=== PATIENT | female | born 1975 | race Hispanic/Latino ===

== ENCOUNTER 2017-08-03 17:26 | Emergency (ER) | payer BC, SELFPAY ==
[2017-08-03] MEDS ORDERED: MEPERIDINE HCL 25 MG/0.5 ML ONE (18:26)
[2017-08-03] MEDS ORDERED: PROMETHAZINE 25 MG/ML VIAL ONE (18:26)
[2017-08-03 19:51] LABS: Glucose Level 107 mg/dL (65-120)
[2017-08-03 19:52] LABS: BUN Blood Urea Nitrogen 5 mg/dL (6-20)
[2017-08-03 19:53] LABS: Absolute Lymphocytes (CBC) 1.4 K/uL (0.7-4.9); Absolute Monocytes 0.5 K/uL (0.1-1.3); Absolute Neutrophil 6.3 K/uL (1.8-8.0); Basophils % 0.2 % (0-1.3); Bicarbonate 30 mEq/L (21-31); Eosinophils % 0.7 % (0-4.4); Hematocrit 36.5 % (36.0-45.0); Lymphocytes % 17.1 % (15.3-44.8); MCH 31.1 pg (27.0-35.0); MCV 92.8 fL (80-100); MPV 9.8 fL (7.6-11.3); Monocytes % 6.4 % (3.3-12.3); RBC Red Blood Cell Count 3.93 M/uL (3.86-4.86); Sodium Level 133 mEq/L (135-145)
[2017-08-03] MEDS ORDERED: PIPER/TAZO/NS 3.375gm 3.375 GM/100 ML BAG ONE (20:45)
--- NOTE | 2017-08-03 20:48 | RAD REPORT ---
EXAM DESCRIPTION: CT - Soft Tissue Neck W/Contr - 08/03/2017 8:30 pm CLINICAL HISTORY: Neck pain with neck swelling COMPARISON: None. TECHNIQUE: Computed axial tomography of the neck was obtained. 50 cc Isovue 300 was administered in travenously. Coronal and sagittal reconstruction was performed. All CT scans are performed using dose optimization technique as appropriate and may include automated exposure control or mA/KV adjustment according to patient size. FINDINGS: A lucency is present within a right mandibular molar. Stranding is present within the oralia cent subcutaneous fat . A fluid-filled abscess is not seen. The pharynx, tongue base, larynx and subglottic trachea appear unremarkable The parotid, submandibular and thyroid glands appear unremarkable. The parapharyngeal fat is clear. No significant lymphadenopathy is seen Fluid within the visualized sinuses is not noted IMPRESSION: Left mandibular tooth abscess with surrounding cellulitis
--- NOTE | 2017-08-03 21:12 | ER ---
Nurse's Notes [facility] Name: Ju King Age: 42 yrs Sex: Female : 1975 Arrival Date: 08/03/2017 Time: 17:27 Bed 14 Private MD: Unknown, Unknown Diagnosis: Periapical abscess without sinus;Cellulitis of face Presentation: 08/03 17:39 Presenting complaint: Patient states: I have a tooth infection, I saw the dentist aj1 yesterday and he gave me antibiotics and pain medication, this morning it was still swollen and I went to sleep and when I woke up it feels like all the swelling is starting to move down into my neck. I called the dentist's office but they said he had already left for the day and I might need to come to the hospital for a stronger antibiotic. Transition of care: patient was not received from another setting of care. Onset of symptoms was July 31, 2017. Risk Assessment: Do you want to hurt yourself or someone else? Patient reports no desire to harm self or others. Initial Sepsis Screen: Does the patient meet any 2 criteria? No. Patient's initial sepsis screen is negative. Does the patient have a suspected source of infection? No. Patient's initial sepsis screen is negative. Care prior to arrival: None. 17:39 Method Of Arrival: Ambulatory aj1 17:39 Acuity: DESHAWN 3 aj1 Triage Assessment: 17:46 General: Appears uncomfortable, Behavior is calm, cooperative. Pain: Complains of pain aj1 in right ear, right latter day, right jaw and submental area Pain does not radiate. Pain currently is 5 out of 10 on a pain scale. Quality of pain is described as tender. EENT: Throat is reddened bilaterally. Respiratory: Airway is patent Respiratory effort is even, unlabored, Respiratory pattern is regular, symmetrical, Breath sounds are clear bilaterally. Musculoskeletal: Swelling present in right cheek, right jaw and submental area. 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 - Social history:: Smoking status: Patient uses tobacco products, smokes 1.5 packs per day. - Ebola Screening: : Patient denies travel to an Ebola-affected area in the 21 days before illness onset. Screenin:10 Abuse screen: Denies threats or abuse. Nutritional screening: No deficits noted. aa5 Tuberculosis screening: No symptoms or risk factors identified. Fall Risk None identified. Assessment: 18:10 General: Appears uncomfortable, Behavior is calm, cooperative. Pain: Complains of pain aa5 in right buccal mucosa and right cheek and right jaw Pain currently is 5 out of 10 on a pain scale. Quality of pain is described as sharp, throbbing, Is continuous, Aggravated by eating. Neuro: Level of Consciousness is awake, alert, obeys commands, Oriented to person, place, time, situation. Cardiovascular: Heart tones S1 S2 present Rhythm is regular. Respiratory: Airway is patent Respiratory effort is even, unlabored, Respiratory pattern is regular, symmetrical. GI: No signs and/or symptoms were reported involving the gastrointestinal system. Patient currently denies nausea, vomiting. : No signs and/or symptoms were reported regarding the genitourinary system. EENT: swelling noted to right cheek and right jaw. Swelling noted to right upper gums and right lower gums. Upper teeth absent, poor molars noted to lower gums. . Derm: Skin is pink, warm \T\ dry. Musculoskeletal: Range of motion: intact in all extremities. 18:50 Reassessment: Patient and/or family updated on plan of care and expected duration. Pain aa5 level reassessed. Patient is alert, oriented x 3, equal unlabored respirations, skin warm/dry/pink. 19:38 General: Appears in no apparent distress. Behavior is calm, cooperative. Pain: Denies ea pain. Neuro: Level of Consciousness is awake, alert, obeys commands, Oriented to person, place, time, situation. Cardiovascular: Heart tones S1 S2 present. Respiratory: Airway is patent Respiratory effort is even, unlabored, Respiratory pattern is regular, symmetrical, Breath sounds are clear bilaterally. GI: No signs and/or symptoms were reported involving the gastrointestinal system. : No signs and/or symptoms were reported regarding the genitourinary system. EENT: Reports she had teeth pulled and has had issues with her lower teeth before. Derm: swelling to right side of face. Musculoskeletal: Circulation, motion, and sensation intact. 20:00 Reassessment: Patient and/or family updated on plan of care and expected duration. Pain ea level reassessed. Patient is alert, oriented x 3, equal unlabored respirations, skin warm/dry/pink. Patient states symptoms have improved. 21:51 Reassessment: Patient and/or family updated on plan of care and expected duration. Pain ea level reassessed. Patient is alert, oriented x 3, equal unlabored respirations, skin warm/dry/pink. Discharge instructions given to patient, verbalized the understanding of instructions. Patient states symptoms have improved. Vital Signs: 17:46 BP 127 / 70; Pulse 99; Resp 18; Temp 98.7; Pulse Ox 98% on R/A; Weight 74.84 kg; Pain aj1 5/10; 19:00 BP 118 / 75; Pulse 87; Resp 16 S; Pulse Ox 100% on R/A; Pain 5/10; aa5 20:00 BP 108 / 67; Pulse 70; Resp 18; Pulse Ox 98% on R/A; ea 21:51 BP 110 / 72; Pulse 80; Resp 18; Temp 97.6(TE); Pulse Ox 98% on R/A; Pain 3/10; ea ED Course: 17:27 Patient arrived in ED. mr 17:27 Unknown, Unknown is Private Physician. mr 17:43 Triage completed. aj1 17:46 Arm band placed on Patient placed in waiting room, Patient notified of wait time. aj1 18:03 Raphael Green PA is PHCP. jr8 18:03 Angel Ryan MD is Attending Physician. jr8 18:08 Lesley Mei, BASSEM is Primary Nurse. aa5 18:10 Patient has correct armband on for positive identification. Bed in low position. Call aa5 light in reach. Side rails up X2. 18:50 Basic Metabolic Panel Sent. ag 18:50 CBC with Diff Sent. ag 18:50 Initial lab(s) drawn, by ut, sent to lab. Inserted saline lock: 20 gauge in right ag antecubital area, using aseptic technique. Blood collected. 19:00 No provider procedures requiring assistance completed. aa5 19:05 Report given to BASSEM Obrien. aa5 20:21 Patient moved to NE via wheelchair. nj 20:24 CT completed. Patient tolerated procedure well. Patient moved back from NE. nj 20:29 CT Soft Tissue Neck W/contr In Process Unspecified. EDMS 21:50 IV discontinued, intact, bleeding controlled, No redness/swelling at site. Pressure ea dressing applied. Administered Medications: 18:50 Drug: Demerol 25 mg Route: IVP; Site: right antecubital; aa5 18:55 Follow up: Response: No adverse reaction aa5 18:50 Drug: Phenergan 12.5 mg Route: IVP; Site: right antecubital; aa5 18:55 Follow up: Response: No adverse reaction aa5 20:52 Drug: Zosyn 3.375 grams Route: IVPB; Infused Over: 60 mins; Site: right antecubital; ea 21:50 Follow up: Response: No adverse reaction; IV Status: Completed infusion ea 21:45 Drug: Potassium Chloride 40 mEq Route: PO; ea 21:50 Follow up: Response: No adverse reaction ea Outcome: 21:11 Discharge ordered by . dustin 21:46 Discharged to home ambulatory, with family. ea 21:46 Condition: stable 21:46 Discharge instructions given to patient, Instructed on discharge instructions, follow up and referral plans. medication usage, Demonstrated understanding of instructions, follow-up care, medications, Prescriptions given X 1. 21:52 Patient left the ED. ea Signatures: Dispatcher [employer] EDCO Lucinda Marshall RN RN aj1 Carmela Kuo MeiLesley haywood RN RN aa5 Raphael Green PA PA jr8 Alecia Fournier Nathan nj Antunez, Elena, RN RN ea
--- NOTE | 2017-08-03 21:12 | EDPHYS ---
Physician Documentation [facility] Name: Ju King Age: 42 yrs Sex: Female : 1975 Arrival Date: 08/03/2017 Time: 17:27 Bed 14 Private MD: Unknown, Unknown ED Physician Angel Ryan HPI: 08/03 19:11 This 42 yrs old Female presents to ER via Ambulatory with complaints of Sore jr8 Throat, Facial Swelling. 19:11 Onset: The symptoms/episode began/occurred gradually, 2 day(s) ago. Severity of jr8 symptoms: At their worst the symptoms were moderate, in the emergency department the symptoms are unchanged. Modifying factors: The symptoms are alleviated by nothing, the symptoms are aggravated by nothing. Associated signs and symptoms: The patient has no apparent associated signs or symptoms. The patient has not experienced similar symptoms in the past. The patient has been recently seen by a physician:. Patient stated that she has had facial swelling for the past couple of days. Saw dentist yesterday and started her on clindamycin. Stated that the swelling was worse today and felt like her throat was getting tight . 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 - Social history:: Smoking status: Patient uses tobacco products, smokes 1.5 packs per day. - Ebola Screening: : Patient denies travel to an Ebola-affected area in the 21 days before illness onset. ROS: 19:11 Eyes: Negative for injury, pain, redness, and discharge, Cardiovascular: Negative for jr8 chest pain, palpitations, and edema, Respiratory: Negative for shortness of breath, cough, wheezing, and pleuritic chest pain, Abdomen/GI: Negative for abdominal pain, nausea, vomiting, diarrhea, and constipation, Back: Negative for injury and pain, MS/Extremity: Negative for injury and deformity, Skin: Negative for injury, rash, and discoloration, Neuro: Negative for headache, weakness, numbness, tingling, and seizure. 19:11 ENT: Positive for dental pain, Gum pain Negative for sore throat, difficulty swallowing, difficulty handling secretions, hoarseness. 19:11 Neck: Positive for swelling, tenderness, of the submental area. Exam: 19:11 Eyes: Pupils equal round and reactive to light, extra-ocular motions intact. Lids and jr8 lashes normal. Conjunctiva and sclera are non-icteric and not injected. Cornea within normal limits. Periorbital areas with no swelling, redness, or edema. Neck: Trachea midline, no thyromegaly or masses palpated, and no cervical lymphadenopathy. Supple, full range of motion without nuchal rigidity, or vertebral point tenderness. No Meningismus. Cardiovascular: Regular rate and rhythm with a normal S1 and S2. No gallops, murmurs, or rubs. Normal PMI, no JVD. No pulse deficits. Respiratory: Lungs have equal breath sounds bilaterally, clear to auscultation and percussion. No rales, rhonchi or wheezes noted. No increased work of breathing, no retractions or nasal flaring. Abdomen/GI: Soft, non-tender, with normal bowel sounds. No distension or tympany. No guarding or rebound. No evidence of tenderness throughout. Back: No spinal tenderness. No costovertebral tenderness. Full range of motion. Skin: Warm, dry with normal turgor. Normal color with no rashes, no lesions, and no evidence of cellulitis. MS/ Extremity: Pulses equal, no cyanosis. Neurovascular intact. Full, normal range of motion. Neuro: Awake and alert, GCS 15, oriented to person, place, time, and situation. Cranial nerves II-XII grossly intact. Motor strength 5/5 in all extremities. Sensory grossly intact. Cerebellar exam normal. Normal gait. 19:11 Head/face: Noted is swelling, that is moderate, of the right cheek, chin and right jaw, tenderness, that is moderate, of the chin and right jaw. 19:11 ENT: Dental exam: dental caries, that is moderate, diffusely, pain, that is moderate, specifically in the lower right first molar (#30). Vital Signs: 17:46 BP 127 / 70; Pulse 99; Resp 18; Temp 98.7; Pulse Ox 98% on R/A; Weight 74.84 kg; Pain aj1 5/10; 19:00 BP 118 / 75; Pulse 87; Resp 16 S; Pulse Ox 100% on R/A; Pain 5/10; aa5 20:00 BP 108 / 67; Pulse 70; Resp 18; Pulse Ox 98% on R/A; ea 21:51 BP 110 / 72; Pulse 80; Resp 18; Temp 97.6(TE); Pulse Ox 98% on R/A; Pain 3/10; ea MDM: 18:03 Patient medically screened. jr8 21:09 Data reviewed: vital signs, nurses notes, lab test result(s), radiologic studies, CT jr8 scan, and as a result, I will discharge patient. Data interpreted: Pulse oximetry: on room air is 98 %. Interpretation: normal. Counseling: I had a detailed discussion with the patient and/or guardian regarding: the historical points, exam findings, and any diagnostic results supporting the discharge/admit diagnosis, lab results, radiology results, the need for outpatient follow up, a dentist, to return to the emergency department if symptoms worsen or persist or if there are any questions or concerns that arise at home. ED course: Patient without fever, abnormal vital signs, or elevated WBC count. Patient can swallow and is feeling better. At this time I believe outpatient therapy is indicated. Strict instructions to come back if she worsens. Patient and good with this. Also instructed to continue clindamycin at home until finished and will add second antibiotic . 08/03 18:20 Order name: CBC with Diff; Complete Time: 20:05 [facility] 08/03 18:20 Order name: Basic Metabolic Panel; Complete Time: 20:05 [facility] 08/03 20:06 Order name: CT Soft Tissue Neck W/contr; Complete Time: 21:04 [facility] 08/03 20:28 Order name: Urine Dipstick--Ancillary (enter results) [facility] 08/03 20:28 Order name: Urine --Ancillary (enter results) [facility] 08/03 18:20 Order name: IV; Complete Time: 18:50 Administered Medications: 18:50 Drug: Demerol 25 mg Route: IVP; Site: right antecubital; aa5 18:55 Follow up: Response: No adverse reaction aa5 18:50 Drug: Phenergan 12.5 mg Route: IVP; Site: right antecubital; aa5 18:55 Follow up: Response: No adverse reaction aa5 20:52 Drug: Zosyn 3.375 grams Route: IVPB; Infused Over: 60 mins; Site: right antecubital; ea 21:50 Follow up: Response: No adverse reaction; IV Status: Completed infusion ea 21:45 Drug: Potassium Chloride 40 mEq Route: PO; ea 21:50 Follow up: Response: No adverse reaction ea Disposition: 08/03/17 21:11 Discharged to Home. Impression: Periapical abscess without sinus, Cellulitis of face. - Condition is Stable. - Discharge Instructions: Cellulitis, Dental Abscess. - Prescriptions for Bactrim DS 800- 160 mg Oral Tablet - take 1 tablet by ORAL route every 12 hours for 10 days; 20 tablet. - Medication Reconciliation Form, Thank You Letter, Antibiotic Education, Prescription Opioid Use form. - Follow up: Private Physician; When: 2 - 3 days; Reason: Recheck today's complaints, Continuance of care, Re-evaluation by your physician. - Problem is new. - Symptoms have improved. Addendum: 08/08/2017 12:26 Co-signature as Attending Physician, Angel Ryan MD. r n Signatures: Dispatcher [employer] EDLucinda Camargo RN RN aj1 Angel Ryan MD MD rn Calderon, Audri, RN RN aa5 Raphael Green PA PA jr8 Camille Butler RN RN ea Corrections: (The following items were deleted from the chart) 08/03 21:52 21:11 08/03/2017 21:11 Discharged to Home. Impression: Periapical abscess without ea sinus; Cellulitis of face. Condition is Stable. Forms are Medication Reconciliation Form, Thank You Letter, Antibiotic Education, Prescription Opioid Use. Follow up: Private Physician; When: 2 - 3 days; Reason: Recheck today's complaints, Continuance of care, Re-evaluation by your physician. Problem is new. Symptoms have improved. jr8
[2017-08-03] MEDS ORDERED: POTASSIUM CL SA 10 MEQ TAB PO ONE ×2 (21:33→21:41)
[2017-08-03 23:01] LABS: Urine Blood TRACE (NEG); Urine Glucose NEGATIVE (NEG); Urine Protein NEGATIVE (NEG)
== END 2017-08-03 21:52 | disposition home or self-care (01) ==
LOC: ER 17:26
DX: K04.7 Periapical abscess without sinus (principal); F17.210 Nicotine dependence, cigarettes, uncomplicated
CPT/HCPCS: 36415; 70491; 80048; 81003; 81025; 85025; 96365; 96375; 99284; J2175; J2543; J2550; Q9967

== ENCOUNTER 2021-06-28 06:35 | Emergency (ER) | payer BC, SELFPAY ==
--- OUTSIDE RECORDS SUMMARY | 2021-06-28 06:37 | XMS REPORT | Continuity of Care Document ---
:1975 Author Organization [facility] t Address [address] [place] [address] Care Team Providers Name Role Phone Unavailable Unavailable Unavailable Problems This patient has no known problems. Allergies, Adverse Reactions, Alerts This patient has no known allergies or adverse reactions. Medications This patient has no known medications. Procedures This patient has no known procedures. Results This patient has no known results.
[2021-06-28] MEDS ORDERED: NA CHLORIDE 0.9% 1,000 ML ONE (07:39)
[2021-06-28] MEDS ORDERED: ONDANSETRON 4 MG/2 ML VIAL ONE (07:39)
[2021-06-28] MEDS ORDERED: MORPHINE 4 MG/ML SYR ONE (07:39)
[2021-06-28 07:49] LABS: Absolute Lymphocytes (CBC) 1.6 K/uL (0.7-4.9); Hematocrit 39.1 % (36.0-45.0); Lymphocytes % 19.2 % (15.3-44.8); MPV 9.4 fL (7.6-11.3); RBC Red Blood Cell Count 4.24 M/uL (3.86-4.86)
[2021-06-28 07:52] LABS: Urine Blood Trace-intact (Negative); Urine Glucose Negative (Negative); Urine Protein Negative (Negative); Urine Specific Gravity 1.015 (1.005-1.030)
[2021-06-28 08:02] LABS: ALT/SGPT 16 U/L (12-78); AST/SGOT 12 U/L (15-37); Albumin 3.4 g/dL (3.4-5.0); Alkaline Phosphatase 88 U/L (45-117); BUN Blood Urea Nitrogen 9 mg/dL (7-18); Bicarbonate 25 mmol/L (21-32); Bilirubin Total 0.4 mg/dL (0.2-1.0); Glucose Level 91 mg/dL (74-106); Lipase 60 U/L (73-393); Potassium 3.4 mmol/L (3.5-5.1); Protein, Total 7.4 g/dL (6.4-8.2); Sodium Level 136 mmol/L (136-145)
--- NOTE | 2021-06-28 08:27 | RAD REPORT ---
EXAM DESCRIPTION: [facility] Protocol - 06/28/2021 8:05 am CLINICAL HISTORY: abd pain COMPARISON: [facility] Protocol dated 12/22/2015; LUMBAR SPINE 3 VIEWS dated 11/06/2013 TECHNIQUE: CT of the abdomen and pelvis was performed without contrast. All CT scans are performed using dose optimization technique as appropriate and may include automated exposure control or mA/KV adjustment according to patient size. FINDINGS: Lower chest: Mild nonspecific interlobular septal thickening in the lung bases. Liver: No acute abnormality or suspicious lesions. Biliary: Cholecystectomy. Extrahepatic biliary duct dilatation is likely related to the postcholecyst ectomy state. Stomach: Gastric bypass. Duodenum: No significant focal abnormality. Pancreas: No significant abnormality. Spleen: No significant abnormality. Adrenal: Unchanged bilateral adrenal lesions which are consistent with adenomas. Kidney/ureter: No hydronephrosis. No renal calculi. Retroperitoneum: Enlarged para-aortic lymph node at the aortic bifurcation which is slightly smaller compared with 12/22/2015 and almost certainly benign. Vascular: No aneurysm. Bowel: Normal appendix.. Peritoneum: No ascites or free air. Bladder: Grossly unremarkable. Reproductive: No adnexal masses. Bones: No acute fracture. 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 Other: n/a IMPRESSION: No acute intra-abdominal or pelvic finding. Specifically, no urinary tract calculi ident ified. Normal appendix.
[2021-06-28] MEDS ORDERED: POTASSIUM 25 MEQ EFFERV TAB ONE (09:00)
--- NOTE | 2021-06-28 09:05 | ER ---
Nurse's Notes [facility] Name: Ju King Age: 46 yrs Sex: Female : 1975 Arrival Date: 06/28/2021 Time: 06:36 Bed 14 Private MD: Diagnosis: Low back pain-flank pain;Hypokalemia Presentation: 06/28 07:06 Chief complaint: Patient states: she is having left flank pain x 5 days which is bb getting worse denies fever, dysuria, vomiting or diarrhea. Coronavirus screen: At this time, the client does not indicate any symptoms associated with coronavirus-19. Ebola Screen: No symptoms or risks identified at this time. Initial Sepsis Screen: Does the patient meet any 2 criteria? No. Patient's initial sepsis screen is negative. Does the patient have a suspected source of infection? No. Patient's initial sepsis screen is negative. Risk Assessment: Do you want to hurt yourself or someone else? Patient reports no desire to harm self or others. Onset of symptoms was June 23, 2021. 07:06 Method Of Arrival: Wheelchair bb 07:06 Acuity: DESHAWN 2 bb Triage Assessment: 07:08 General: Appears uncomfortable, ill, Behavior is agitated, anxious. Pain: Complains of bb pain in left flank Pain currently is 8 out of 10 on a pain scale. Neuro: Level of Consciousness is awake, alert, obeys commands, Oriented to person, place, time, situation. Cardiovascular: Capillary refill < 3 seconds Patient's skin is warm and dry. Respiratory: Respiratory effort is unlabored. GI: Abdomen is round Reports left flank pain. : Denies dysuria. Derm: Skin is pink, warm \T\ dry. Musculoskeletal: Circulation, motion, and sensation intact. BUSINESS SUPPORT LIAISON: 07:08 LMP 06/2021 bb Historical: - Allergies: 07:08 No Known Allergies; bb - Home Meds: 07:08 None [Active]; bb - PMHx: 07:08 None; bb - PSHx: 07:08 carpal tunnel; gastric bypass; bb - Immunization history:: Client reports receiving the 2nd dose of the Covid vaccine, Pfizer. - Social history:: Smoking status: Patient reports the use of cigarette tobacco products. Screenin:30 Abuse screen: Denies threats or abuse. Nutritional screening: No deficits noted. vg1 Tuberculosis screening: No symptoms or risk factors identified. Fall Risk No fall in past 12 months (0 pts). No secondary diagnosis (0 pts). IV access (20 points). Ambulatory Aid- None/Bed Rest/Nurse Assist (0 pts). Gait- Normal/Bed Rest/Wheelchair (0 pts) Mental Status- Oriented to own ability (0 pts). Total Aleman Fall Scale indicates No Risk (0-24 pts). Assessment: 07:20 General: Appears uncomfortable, Behavior is cooperative, crying. Pain: Complains of vg1 pain in Left Flank Pain currently is 8 out of 10 on a pain scale. Pain began x 8 days Noted to be crying, grimacing, guarding, moaning. Neuro: [place] Agitation-Sedation Scale (RASS): +1 Restless Level of Consciousness is awake, alert, obeys commands, Oriented to person, place, time, situation. Cardiovascular: Patient's skin is warm and dry. Respiratory: Airway is patent Respiratory effort is even, unlabored. GI: Abdomen is flat, Last BM was June 20, 2021. Reports nausea, Patient currently denies diarrhea, vomiting. : Denies burning with urination, urinary frequency. EENT: No signs and/or symptoms were reported regarding the EENT system. Derm: Skin is intact, is healthy with good turgor. Musculoskeletal: Circulation, motion, and sensation intact. 07:30 Reassessment: Received VO from Dr Almodovar to administer Morphine 4 mg IVP x1. vg1 08:46 Reassessment: Patient appears in no apparent distress at this time. Patient and/or vg1 family updated on plan of care and expected duration. Pain level reassessed. Patient is alert, oriented x 3, equal unlabored respirations, skin warm/dry/pink. Patient states feeling better. 09:31 Reassessment: Patient appears in no apparent distress at this time. Patient and/or vg1 family updated on plan of care and expected duration. Pain level reassessed. Patient is alert, oriented x 3, equal unlabored respirations, skin warm/dry/pink. Vital Signs: 07:06 BP 98 / 77; Pulse 79; Resp 20 S; Temp 97.8(TE); Pulse Ox 96% on R/A; Weight 71.21 kg bb (R); Height 5 ft. 3 in. (160.02 cm) (R); Pain 8/10; 07:30 BP 118 / 69; Pulse 82; Resp 18; Pulse Ox 98% on R/A; vg1 08:15 BP 101 / 85; Pulse 60; Resp 16; Pulse Ox 97% on R/A; vg1 07:06 Body Mass Index 27.81 (71.21 kg, 160.02 cm) ED Course: 06:36 Patient arrived in ED. kz 07:07 Triage completed. bb 07:08 Arm band placed on Patient placed in an exam room, on a stretcher, on pulse oximetry. bb Family accompanied patient. 07:12 Ras Almodovar MD is Attending Physician. mary 07:16 Ghada De Paz, RN is Primary Nurse. vg1 07:30 Patient has correct armband on for positive identification. Bed in low position. Call vg1 light in reach. Side rails up X 1. 07:30 Initial lab(s) drawn, by me, sent to lab. Inserted saline lock: 20 gauge in right vg1 antecubital area, using aseptic technique. Blood collected. 08:07 CT Stone Protocol In Process Unspecified. EDMS 09:31 No provider procedures requiring assistance completed. IV discontinued, intact, vg1 bleeding controlled, No redness/swelling at site. Pressure dressing applied. Administered Medications: 07:37 Drug: NS 0.9% 1000 ml Route: IV; Rate: 1 bolus; Site: right antecubital; vg1 09:32 Follow up: IV Status: Completed infusion; IV Intake: 1000ml vg1 07:37 Drug: Zofran (Ondansetron) 4 mg Route: IVP; Site: right antecubital; vg1 08:57 Follow up: Response: No adverse reaction; Marked relief of symptoms vg1 07:39 Drug: morphine 4 mg {Note: RASS 1.} Route: IVP; Site: right antecubital; vg1 08:57 Follow up: Response: No adverse reaction; Marked relief of symptoms vg1 09:00 Drug: Potassium Effervescent Tablet 25 mEq Route: PO; vg1 09:32 Follow up: Response: No adverse reaction vg1 Intake: 09:32 IV: 1000ml; Total: 1000ml. vg1 Outcome: 09:05 Discharge ordered by . mary 09:31 Discharged to home ambulatory, with family. vg1 09:31 Condition: good 09:31 Discharge instructions given to patient, Instructed on discharge instructions, follow up and referral plans. medication usage, Demonstrated understanding of instructions, follow-up care, medications, Prescriptions given X 3. 09:31 Patient left the ED. vg1 Signatures: Dispatcher [employer] Ras Tsai MD MD cha Ballard, Brenda, RN RN Ghada Murray RN RN vg1 Grace Costello
--- NOTE | 2021-06-28 09:05 | EDPHYS ---
Physician Documentation [facility] Name: Ju King Age: 46 yrs Sex: Female : 1975 Arrival Date: 06/28/2021 Time: 06:36 Bed 14 Private MD: RAYMOND Physician Ras Almodovar HPI: 06/28 08:14 This 46 yrs old Female presents to ER via Wheelchair with complaints of Flank mary Pain - Left. 08:14 The patient complains of pain in the left low back and left mid back. The pain radiates mary to the left low back and left mid back. Onset: The symptoms/episode began/occurred 6 day(s) ago. Modifying factors: The symptoms are alleviated by nothing. the symptoms are aggravated by nothing. Associated signs and symptoms: The patient has no apparent associated signs or symptoms. Severity of pain: At its worst the pain was. The patient has not experienced similar symptoms in the past. HEAD GRINDER: 07:08 LMP 06/2021 bb Historical: - Allergies: 07:08 No Known Allergies; bb - Home Meds: 07:08 None [Active]; bb - PMHx: 07:08 None; bb - PSHx: 07:08 carpal tunnel; gastric bypass; bb - Immunization history:: Client reports receiving the 2nd dose of the Covid vaccine, Pfizer. - Social history:: Smoking status: Patient reports the use of cigarette tobacco products. ROS: 08:15 Constitutional: Negative for fever, chills, and weight loss, Eyes: Negative for injury, mary pain, redness, and discharge, ENT: Negative for injury, pain, and discharge, Neck: Negative for injury, pain, and swelling, Cardiovascular: Negative for chest pain, palpitations, and edema, Respiratory: Negative for shortness of breath, cough, wheezing, and pleuritic chest pain, Abdomen/GI: Negative for abdominal pain, nausea, vomiting, diarrhea, and constipation, : Negative for injury, bleeding, discharge, and swelling, MS/Extremity: Negative for injury and deformity, Skin: Negative for injury, rash, and discoloration, Neuro: Negative for headache, weakness, numbness, tingling, and seizure, Psych: Negative for depression, anxiety, suicide ideation, homicidal ideation, and hallucinations, Allergy/Immunology: Negative for hives, rash, and allergies, Endocrine: Negative for neck swelling, polydipsia, polyuria, polyphagia, and marked weight changes, Hematologic/Lymphatic: Negative for swollen nodes, abnormal bleeding, and unusual bruising. 08:15 Back: Positive for pain at rest, flank pain, on the left. Exam: 08:15 Constitutional: This is a well developed, well nourished patient who is awake, alert, mary and in no acute distress. Head/Face: Normocephalic, atraumatic. Eyes: Pupils equal round and reactive to light, extra-ocular motions intact. Lids and lashes normal. Conjunctiva and sclera are non-icteric and not injected. Cornea within normal limits. Periorbital areas with no swelling, redness, or edema. ENT: Nares patent. No nasal discharge, no septal abnormalities noted. Tympanic membranes are normal and external auditory canals are clear. Oropharynx with no redness, swelling, or masses, exudates, or evidence of obstruction, uvula midline. Mucous membranes moist. Neck: Trachea midline, no thyromegaly or masses palpated, and no cervical lymphadenopathy. Supple, full range of motion without nuchal rigidity, or vertebral point tenderness. No Meningismus. Chest/axilla: Normal chest wall appearance and motion. Nontender with no deformity. No lesions are appreciated. Cardiovascular: Regular rate and rhythm with a normal S1 and S2. No gallops, murmurs, or rubs. Normal PMI, no JVD. No pulse deficits. Respiratory: Lungs have equal breath sounds bilaterally, clear to auscultation and percussion. No rales, rhonchi or wheezes noted. No increased work of breathing, no retractions or nasal flaring. Female : Normal external genitalia. Skin: Warm, dry with normal turgor. Normal color with no rashes, no lesions, and no evidence of cellulitis. MS/ Extremity: Pulses equal, no cyanosis. Neurovascular intact. Full, normal range of motion. Neuro: Awake and alert, GCS 15, oriented to person, place, time, and situation. Cranial nerves II-XII grossly intact. Motor strength 5/5 in all extremities. Sensory grossly intact. Cerebellar exam normal. Normal gait. Psych: Awake, alert, with orientation to person, place and time. Behavior, mood, and affect are within normal limits. 08:15 Respiratory: the patient does not display signs of respiratory distress, Respirations: normal, no acute changes, Breath sounds: are clear throughout. 08:15 Abdomen/GI: Inspection: abdomen appears normal, Bowel sounds: normal, active, Palpation: mild abdominal tenderness, in the posterior aspect of left lateral abdomen, anterior aspect of left lateral abdomen, left upper quadrant and left lower quadrant, Liver: no appreciated palpable abnormalities, Hernia: not appreciated. Vital Signs: 07:06 BP 98 / 77; Pulse 79; Resp 20 S; Temp 97.8(TE); Pulse Ox 96% on R/A; Weight 71.21 kg bb (R); Height 5 ft. 3 in. (160.02 cm) (R); Pain 8/10; 07:30 BP 118 / 69; Pulse 82; Resp 18; Pulse Ox 98% on R/A; vg1 08:15 BP 101 / 85; Pulse 60; Resp 16; Pulse Ox 97% on R/A; vg1 07:06 Body Mass Index 27.81 (71.21 kg, 160.02 cm) MDM: 07:12 Patient medically screened. [facility] 08:16 Differential diagnosis: nephrolithiasis, pyelonephritis, UTI, diverticulitis, mary pancreatitis, Basilar Pneumonia chronic back pain. Data reviewed: vital signs, nurses notes, lab test result(s), radiologic studies, CT scan, plain films. Data interpreted: youth nutritional monitor: rate is 82 beats/min, rhythm is regular, Pulse oximetry: on room air is 98 %. Test interpretation: by ED physician or midlevel provider:. Counseling: I had a detailed discussion with the patient and/or guardian regarding: the historical points, exam findings, and any diagnostic results supporting the discharge/admit diagnosis, lab results, radiology results. 06/28 07:14 Order name: CBC with Diff; Complete Time: 08:17 mary 06/28 07:14 Order name: CMP; Complete Time: 08:17 mary 06/28 07:14 Order name: Lipase; Complete Time: 08:17 mary 06/28 07:14 Order name: Urine Culture mary 06/28 07:52 Order name: Urine Dipstick-Ancillary; Complete Time: 08:17 EDMS 06/28 07:53 Order name: Urine --Ancillary (enter results) bd 06/28 07:14 Order name: IV Saline Lock; Complete Time: 07:32 mary 06/28 07:14 Order name: Labs collected and sent; Complete Time: 07:32 [facility] 06/28 07:14 Order name: Urine Dipstick-Ancillary (obtain specimen); Complete Time: 07:53 [facility] 06/28 07:14 Order name: CT Stone Protocol; Complete Time: 09:04 [facility] 06/28 07:14 Order name: Urine Test (obtain specimen); Complete Time: 07:53 [facility] Administered Medications: 07:37 Drug: NS 0.9% 1000 ml Route: IV; Rate: 1 bolus; Site: right antecubital; vg1 09:32 Follow up: IV Status: Completed infusion; IV Intake: 1000ml vg1 07:37 Drug: Zofran (Ondansetron) 4 mg Route: IVP; Site: right antecubital; vg1 08:57 Follow up: Response: No adverse reaction; Marked relief of symptoms vg1 07:39 Drug: morphine 4 mg {Note: RASS 1.} Route: IVP; Site: right antecubital; vg1 08:57 Follow up: Response: No adverse reaction; Marked relief of symptoms vg1 09:00 Drug: Potassium Effervescent Tablet 25 mEq Route: PO; vg1 09:32 Follow up: Response: No adverse reaction vg1 Disposition Summary: 06/28/21 09:05 Discharge Ordered Location: Home [facility] Problem: new [facility] Symptoms: have improved [facility] Condition: Stable [facility] Diagnosis - Low back pain - flank pain mary - Hypokalemia mary Followup: mary - With: Private Physician - When: 2 - 3 days - Reason: Recheck today's complaints, Continuance of care, Re-evaluation by your physician Discharge Instructions: - Discharge Summary Sheet mary - Acute Back Pain, Adult mary - Musculoskeletal Pain mary - Hypokalemia [facility] Forms: - Medication Reconciliation Form [facility] - Thank You Letter mary - Antibiotic Education mary - Prescription Opioid Use [facility] Prescriptions: - Ibuprofen 600 mg Oral Tablet - take 1 tablet by ORAL route every 6 hours As needed take with food; 30 tablet; [facility] Refills: 0, Product Selection Permitted - Cyclobenzaprine 5 mg Oral Tablet - take 1 tablet by ORAL route 3 times per day As needed; 15 tablet; Refills: 0, mary Product Selection Permitted - Tylenol-Codeine #3 300 mg-30 mg Oral - take 2 tablet by ORAL route every 6 hours; 20 tablet; Refills: 0, Product mary Selection Permitted Signatures: Dispatcher [employer] Ras Tsai MD MD cha Ballard, Brenda, RN RN Ghada Murray RN RN vg1
[2021-06-28 09:32] LABS: Urine Specific Gravity/Preg 1.015 (1.005-1.030)
[2021-06-28 09:43] VITALS: TEMP 97.8
[2021-06-28 09:52] VITALS: BP 101/85; O2SAT 97
== END 2021-06-28 09:31 | disposition home or self-care (01) ==
LOC: ER 06:35
DX: R10.9 Unspecified abdominal pain (principal); M54.50 Low back pain, unspecified; E87.6 Hypokalemia; Z72.0 Tobacco use
CPT/HCPCS: 87088; 85025; 87086; 36415; 81025; 81003; 83690; 80053; 76377; 74176; J7030; J2405; 96361; 96374; 96375; 99284

== ENCOUNTER → 2023-05-16 | Emergency (ER) | payer BC ==
[~2023-05-16] MED LIST: MORPHINE 4 MG/ML SYR ONE; NA CHLORIDE 0.9% 1,000 ML ONE; ONDANSETRON 4 MG/2 ML VIAL ONE
--- OUTSIDE RECORDS SUMMARY | 2023-05-16 15:27 | XMS REPORT | Continuity of Care Document ---
Author Name Unknown Address [address] [place] [address] [employer] Address [address] [place] [address] [address] [place] [address] Care Team Providers Care Director Of Dementia Operations Name Role Phone [email or web address] Attending Clinician Larry paulino [email or web address] Admitting Clinician Larry paulino Payers Payer Name Policy Type Policy Number Effective Date Expirati on Date Source [id number] 2023 00:00:00 Social History Smoking Status Start Date Stop Date Source Heavy Tobacco Smoker [facility] Medications Ordered Medication Name Filled Medication Name Start Date Stop Date Current Medication? Ordering Clinician Indication Dosage Frequency Signature (SIG) Comments Components Source bupropion HCl XL 150 mg 24 hr tablet, extended release bupropion HCl XL 150 mg 24 hr tablet, extended release 05-11 00:00: 00 No bupropion HCl XL 150 mg 24 hr tablet, extended release [facility] fenofibrate micronized 67 mg capsule fenofibrate micronized 67 mg capsule No fenofibrat e micronized 67 mg capsule [facility] FeroSul 325 mg (65 mg iron) tablet Take 1 tablet every day by oral route. FeroSul 325 mg (65 mg iron) tablet Take 1 tablet every day by oral route. No 1 Q1D FeroSul 325 mg (65 mg iron) tablet Take 1 tablet every day by oral route. [facility] hydroxyzine pamoate 50 mg capsule hydroxyzine pamoate 50 mg capsule No hydroxyzin e pamoate 50 mg capsule [facility] mupirocin 2 % topical ointment APPLY A SMALL AMOUNT INTRANASAL AND INTRAUMBILI LEN TWICE A DAY FOR 3 WEEKS mupirocin 2 % topical ointment APPLY A SMALL AMOUNT INTRANASAL AND INTRAUMBILI LEN TWICE A DAY FOR 3 WEEKS No mupirocin 2 % topical ointment APPLY A SMALL AMOUNT INTRANASAL AND INTRAUMBIL ICAL TWICE A DAY FOR [address] [facility] oxybutynin chloride 5 mg tablet oxybutynin chloride 5 mg tablet No oxybutynin chloride 5 mg tablet [facility] sertraline 100 mg tablet sertraline 100 mg tablet No sertraline [address] [facility] sulfamethox azole 800 mg-trimetho prim 160 mg tablet Take 1 tablet every 12 hours by oral route for 21 days. sulfamethox azole 800 mg-trimetho prim 160 mg tablet Take 1 tablet every 12 hours by oral route for 21 days. No 1 Q12H sulfametho xazole 800 mg-trimeth oprim 160 mg tablet Take 1 tablet every 12 hours by oral route for [address] [facility] temazepam 7.5 mg capsule temazepam 7.5 mg capsule No temazepam 7.[address] [facility] Vitamin D3 Vitamin D3 No Vitamin D3 [facility] baclofen 20 mg tablet baclofen 20 mg tablet No baclofen [address] [facility] cephalexin 500 mg capsule cephalexin 500 mg capsule No cephalexin [address] [facility] diphenhydra mine (bulk) diphenhydra mine (bulk) No diphenhydr amine (bulk) [facility] Vital Signs Vital Name Observation Time Observation Value Comments S ource BP Diastolic 2023-05-12 00:00:00 62 mm[Hg] [facility] Height 2023-05-12 00:00:00 62 [in_i] [facility] BMI (Body Mass Index) 2023-05-12 00:00:00 32.4 kg/m2 [facility] Body Weight 2023-05-12 00:00:00 177 [lb_av] [facility] BP Systolic 2023-05-12 00:00:00 101 mm[Hg] [facility] Procedures Procedure Date / Time Performed Performing Clinicia n Source Gastroplasty 1997-02-20 00:00:00 [facility] Carpal Tunnel Surgery 1995-02-20 00:00:00 [facility] Plan of Care Planned Activity Planned Date Details Comments Source Future Appointment 2023-06-09 14:00:00 Cher pisano, [address] [place] [address] [address]; [address], [place] [address] [facility] Encounters Start Date/Time End Date/Time Encounter Type Admission Type Attending [facility] Care Department Encounter ID Source 2023-05-12 00:00:00 2023-05-12 00:00:00 KANCHAN Ibarra: [address], [facility] [address], [place] [address] , Ph. [facility] - GC_GCBZW_Luisa [facility]* [id number] [facility] 2023-05-11 00:00:00 2023-05-11 00:00:00 Outpatient [facility] [id number] [facility]
[2023-05-16 16:46] LABS: Absolute Lymphocytes (CBC) 1.1 K/uL (0.7-4.9); Absolute Monocytes 0.8 K/uL (0.1-1.3); Absolute Neutrophil 2.3 K/uL (1.8-8.0); Basophils % 0.7 % (0-1.3); Hemoglobin 13.6 g/dL (12.0-15.0); Lymphocytes % 26.6 % (15.3-44.8); MCH 32.2 pg (27.0-35.0); MCV 94.7 fL (80-100); Monocytes % 18.1 % (3.3-12.3); Neutrophils % 54.6 % (41.7-73.7); Nucleated Red Blood Cells % 0.1 % (0-0); Platelets 244 thou/uL (152-406); RBC Red Blood Cell Count 4.22 M/uL (3.86-4.86); Red Cell Distribution Width 14.3 % (12.1-15.2)
[2023-05-16 16:48] LABS: Specific Gravity 1.009 (1.005-1.030)
[2023-05-16 16:50] LABS: Specific Gravity 1.009 (1.005-1.030); Sqamous Epithelial <5 /HPF (None Seen); Urine Bacteria <20 /HPF (<20); Urine Bilirubin NEGATIVE (Negative); Urine Blood Negative (Negative); Urine Clarity Extremely Turbid (Clear); Urine Color Colorless (Yellow); Urine Crystals Unidentified Few /HPF (None Seen); Urine Culture Reflex Order NOT NEEDED; Urine Glucose NEGATIVE (Negative); Urine Ketones NEGATIVE (Negative); Urine Microscopic Reflex YN ORDER UMIC; Urine Nitrite NEGATIVE (Negative); Urine Protein NEGATIVE (Negative); Urine RBC <5 /HPF (None Seen); Urine Urobilinogen Normal (Normal); Urine WBC <5 /HPF (<5); Urine Yeast (Budding) Trace /HPF (None Seen); Urine pH 6.5 (5.0-7.0)
[2023-05-16 17:03] LABS: Albumin 3.2 g/dL (3.4-5.0); Albumin/Globulin Ratio 0.7 (1.1-1.8); Anion Gap 11.6 mEq/L (5.0-15.0); Bilirubin Total 0.7 mg/dL (0.2-1.0); Globulin 4.6 g/dL (2.3-3.5); Potassium 3.6 mEq/L (3.5-5.1); Protein, Total 7.8 g/dL (6.4-8.2)
--- NOTE | 2023-05-16 17:42 | RAD REPORT ---
EXAM DESCRIPTION: CTAbdomen Pelvis W Contrast - 05/16/2023 5:28 pm CLINICAL HISTORY: Abdominal pain. ABD PAIN COMPARISON: No comparisons TECHNIQUE: Biphasic CT imaging of the abdomen and pelvis was performed with 100 ml non-ionic IV cont rast. All CT scans are performed using dose optimization technique as appropriate and may include automated exposure control or mA/KV adjustment according to patient size. FINDINGS: The lung bases are clear.Postsurgical changes about the stomach. Cholecystectomy clips. The liver, spleen, pancreas, adrenal glands and kidneys are within normal limits. No bowel obstruction, free air, free fluid or abscess. The appendix is normal. No evidence of signi ficant lymphadenopathy. No suspicious bony findings. IMPRESSION: No acute intra-abdominal or pelvic finding.
--- NOTE | 2023-05-16 18:08 | EDPHYS ---
Physician Documentation [facility] Name: Ju King Age: 48 yrs Sex: Female : 1975 Arrival Date: 05/16/2023 Time: 15:21 Bed 13 Private MD: ED Physician Jairon Cervantes HPI: 05/15 18:30 This 48 yrs old Female presents to ER via Wheelchair with complaints of kb Abdominal Pain, Diarrhea. 18:30 Patient is a 48-year-old female who presents for lower abdominal pain with diarrhea kb that started 3 days ago. States she was seen by her PCP and referred to the ER for imaging. Patient denies fever, nausea, vomiting.. Historical: - Allergies: 15:27 No Known Allergies; ll1 - PMHx: 15:28 Depressive disorder; Anxiety; ll1 - PSHx: 15:27 carpal tunnel; Gastric Bypass; ll1 - Immunization history:: Adult Immunizations up to date. - Social history:: Smoking status: Patient reports the use of cigarette tobacco products, smokes one-half pack cigarettes per day. ROS: 18:19 Constitutional: As per HPI kb Exam: 18:25 Constitutional: This is a well developed, well nourished patient who is awake, alert, kb and in no acute distress. Head/Face: Normocephalic, atraumatic. ENT: Moist Mucous membranes Cardiovascular: Regular rate Respiratory: Respirations even and unlabored. No increased work of breathing. Talking in full sentences Skin: Warm, dry with normal turgor. Normal color. MS/ Extremity: Pulses equal, no cyanosis. Neurovascular intact. Full, normal range of motion. Neuro: Awake and alert, GCS 15, oriented to person, place, time, and situation. Moves all extremities. Normal gait. 18:25 Abdomen/GI: Inspection: abdomen appears normal, Bowel sounds: normal, Palpation: soft, in all quadrants, mild abdominal tenderness, in the right lower quadrant and left lower quadrant, Vital Signs: 15:29 BP 108 / 73; Pulse 75; Resp 20; Temp 97.9; Pulse Ox 100% ; Weight 78.93 kg; Height 5 ll1 ft. 2 in. ; Pain 8/10; 16:43 BP 111 / 69; Pulse 72; Resp 16; Pulse Ox 100% on R/A; mb9 18:16 BP 116 / 72; Pulse 78; Resp 16; Pulse Ox 100% on R/A; mb9 15:29 Body Mass Index 31.83 (78.93 kg, 157.48 cm) ll1 15:29 Pain Scale: Adult ll1 MDM: 15:26 Patient medically screened. kb 18:29 Differential diagnosis: appendicitis, non-specific abd pain, Pyelonephritis, kb Ureterolithiasis, urinary tract infection. Data reviewed: vital signs, nurses notes. Historians other than the Patient: Spouse/Significant Other: . Counseling: I had a detailed discussion with the patient and/or guardian regarding the historical points, exam findings, and any diagnostic results supporting the discharge/admit diagnosis, lab results, radiology results, the need for outpatient follow up, a family practitioner, a blueprint maker, to return to the emergency department if symptoms worsen or persist or if there are any questions or concerns that arise at home. 05/15 15:30 Order name: CBC with Diff; Complete Time: 16:47 kb 05/15 15:30 Order name: CMP; Complete Time: 17:09 kb 05/15 15:30 Order name: Lipase; Complete Time: 17:09 kb 05/15 15:30 Order name: Test, Urine; Complete Time: 16:49 kb 05/15 15:30 Order name: Urinalysis w/ reflexes; Complete Time: 16:51 kb 05/15 15:30 Order name: CT Abd/Pelvis - IV Contrast Only; Complete Time: 17:55 kb 05/15 15:30 Order name: IV Saline Lock; Complete Time: 16:44 kb 05/15 15:30 Order name: Labs collected and sent; Complete Time: 16:44 kb Administered Medications: 16:40 Drug: Ondansetron IVP 4 mg IVP once; over 2 minutes Route: IVP; Site: right antecubital;mb9 17:13 Follow up: Response: No adverse reaction mb9 16:44 Drug: NS 0.9% IV 1000 ml IV at 1 bolus Per protocol; 1000 mL bolus Route: IV; Rate: 1 mb9 bolus; Site: right antecubital; 18:17 Follow up: Response: No adverse reaction; IV Status: Completed infusion mb9 16:44 Drug: morphine IVP or IV 4 mg IVP once over 4 mins Route: IVP; Infused Over: 4 mins; mb9 Site: right antecubital; 17:13 Follow up: Response: No adverse reaction mb9 Disposition Summary: 05/16/23 18:08 Discharge Ordered Notes: Location: Home kb Condition: Stable kb Diagnosis - Lower abdominal pain, unspecified kb Followup: kb - With: Emergency Department - When: As needed - Reason: Worsening of condition Followup: kb - With: Private Physician - When: 2 - 3 days - Reason: Recheck today's complaints, Continuance of care, Re-evaluation by your physician Discharge Instructions: - Discharge Summary Sheet kb - Abdominal Pain, Adult, [id number] kb Forms: - Medication Reconciliation Form kb - Thank You Letter kb - Antibiotic Education kb - Prescription Opioid Use kb - Patient Portal Instructions kb - Leadership Thank You Letter kb Prescriptions: - Zofran 4 mg Oral tablet - take 1 tablet ORAL route every 6 hours As needed; 12 tablet; Refills: 0, kb Product Selection Permitted - dicyclomine 20 mg Oral tablet - take 1 tablet ORAL route 4 times per day As needed; 20 tablet; Refills: 0, kb Product Selection Permitted Signatures: Dispatcher [employer] Khushi Carolina, DAM TENDER ASSISTANT-C DAM TENDER ASSISTANT-Donna Doyle RN RN ll1 Pamela Yusuf, RN RN mb9 Corrections: (The following items were deleted from the chart) 15:31 15:27 Social history: Smoking status: Patient denies any tobacco usage or history of. ll1 ll1
--- NOTE | 2023-05-16 18:08 | ER ---
Nurse's Notes [facility] Name: Ju King Age: 48 yrs Sex: Female : 1975 Arrival Date: 05/16/2023 Time: 15:21 Bed 13 Private MD: Diagnosis: Lower abdominal pain, unspecified Presentation: 05/15 15:27 Chief complaint: Patient states: Severe abdominal pain for 2 days with diarrhea. ll1 Coronavirus screen: Client denies travel out of the [place] in the last 14 days. At this time, the client does not indicate any symptoms associated with coronavirus-19. Ebola Screen: Patient denies travel to an Ebola-affected area in the 21 days before illness onset. 15:27 Method Of Arrival: Wheelchair ll1 15:29 Initial Sepsis Screen: Does the patient meet any 2 criteria? No. Patient's initial 1 sepsis screen is negative. Does the patient have a suspected source of infection? No. Patient's initial sepsis screen is negative. Risk Assessment: Do you want to hurt yourself or someone else? Patient reports no desire to harm self or others. Onset of symptoms was May 15, 2023. 15:29 Acuity: DESHAWN 3 ll1 Triage Assessment: 15:28 General: Appears uncomfortable, ill, Behavior is calm, cooperative, appropriate for 1 age. Pain: Complains of pain in abdomen Quality of pain is described as aching. Neuro: No deficits noted. Cardiovascular: No deficits noted. GI: Reports lower abdominal pain, upper abdominal pain. Historical: - Allergies: 15:27 No Known Allergies; ll1 - PMHx: 15:28 Depressive disorder; Anxiety; ll1 - PSHx: 15:27 carpal tunnel; Gastric Bypass; ll1 - Immunization history:: Adult Immunizations up to date. - Social history:: Smoking status: Patient reports the use of cigarette tobacco products, smokes one-half pack cigarettes per day. Screenin:42 [facility] ED Fall Risk Assessment (Adult) History of falling in the last 3 months, mb9 including since admission No falls in past 3 months (0 pts) Confusion or Disorientation No (0 pts) Intoxicated or Sedated No (0 pts) Impaired Gait No (0 pts) Mobility Assist Device Used No (0 pt) Altered Elimination No (0 pt) Score/Fall Risk Level 0 - 2 = Low Risk Oriented to surroundings, Maintained a safe environment, Educated pt \T\ family on fall prevention, incl call for assistance when getting out of bed. Abuse screen: Denies threats or abuse. Nutritional screening: No deficits noted. Tuberculosis screening: No symptoms or risk factors identified. Assessment: 16:42 General: Appears uncomfortable, Behavior is calm, cooperative. Pain: Complains of pain mb9 in abdomen Pain radiates to RLQ and LLQ. Pain: Pain currently is 8 out of 10 on a pain scale. Quality of pain is described as sharp, stabbing. Neuro: [place] Agitation-Sedation Scale (RASS): 0 - Alert and Calm Level of Consciousness is awake, alert, obeys commands, Oriented to person, place, time, situation, Appropriate for age. Cardiovascular: Patient's skin is warm and dry. Respiratory: Airway is patent Respiratory effort is even, unlabored, Respiratory pattern is regular, symmetrical. GI: Abdomen is round non-distended, Bowel sounds present X 4 quads. Abd is soft Abdomen is tender to palpation in right lower quadrant and left lower quadrant Reports nausea. : No signs and/or symptoms were reported regarding the genitourinary system. EENT: No signs and/or symptoms were reported regarding the EENT system. Derm: Skin is pink, warm \T\ dry. Musculoskeletal: Range of motion: intact in all extremities. 17:40 Reassessment: No changes from previously documented assessment. Patient and/or family mb9 updated on plan of care and expected duration. Pain level reassessed. Patient is alert, oriented x 3, equal unlabored respirations, skin warm/dry/pink. Vital Signs: 15:29 BP 108 / 73; Pulse 75; Resp 20; Temp 97.9; Pulse Ox 100% ; Weight 78.93 kg; Height 5 ll1 ft. 2 in. ; Pain 8/10; 16:43 BP 111 / 69; Pulse 72; Resp 16; Pulse Ox 100% on R/A; mb9 18:16 BP 116 / 72; Pulse 78; Resp 16; Pulse Ox 100% on R/A; mb9 15:29 Body Mass Index 31.83 (78.93 kg, 157.48 cm) ll1 15:29 Pain Scale: Adult ll1 ED Course: 15:26 Patient arrived in ED. ae5 15:26 Khushi Meadows FNP-C is [facility]. kb 15:26 Jairon Cervantes MD is Attending Physician. kb 15:27 Arm band placed on. ll1 15:31 Triage completed. ll1 16:20 Pamela Yusuf, RN is Primary Nurse. mb9 16:41 Initial lab(s) drawn, by me, sent to lab. Urine collected: clean catch specimen, clear. mb9 Inserted saline lock: 20 gauge in right antecubital area, using aseptic technique. 16:42 Placed in gown. Bed in low position. Call light in reach. Side rails up X 1. Provided mb9 Education on: press call light if needing anything. Client placed on continuous cardiac and pulse oximetry monitoring. NIBP monitoring applied. Door closed. Noise minimized. Warm blanket given. 16:42 No provider procedures requiring assistance completed. mb9 16:44 CMP Sent. mb9 16:44 Lipase Sent. mb9 16:44 Test, Urine Sent. mb9 16:44 Urinalysis w/ reflexes Sent. mb9 17:29 CT Abd/Pelvis - IV Contrast Only In Process Unspecified. EDMS 18:17 IV discontinued, intact, bleeding controlled, No redness/swelling at site. Pressure mb9 dressing applied. Administered Medications: 16:40 Drug: Ondansetron IVP 4 mg IVP once; over 2 minutes Route: IVP; Site: right antecubital;mb9 17:13 Follow up: Response: No adverse reaction mb9 16:44 Drug: NS 0.9% IV 1000 ml IV at 1 bolus Per protocol; 1000 mL bolus Route: IV; Rate: 1 mb9 bolus; Site: right antecubital; 18:17 Follow up: Response: No adverse reaction; IV Status: Completed infusion mb9 16:44 Drug: morphine IVP or IV 4 mg IVP once over 4 mins Route: IVP; Infused Over: 4 mins; mb9 Site: right antecubital; 17:13 Follow up: Response: No adverse reaction mb9 Medication: 16:42 VIS not applicable for this client. mb9 Outcome: 18:08 Discharge ordered by . kb 18:17 Discharged to home ambulatory, with family, mb9 18:17 Condition: stable 18:17 Discharge instructions given to patient, family, Instructed on discharge instructions, follow up and referral plans. Demonstrated understanding of instructions, follow-up care, medications, Prescriptions given X 2, 18:17 Patient left the ED. mb9 Signatures: Dispatcher [employer] EDKhushi Banegas, RAKEL VIZCARRA-Donna Doyle RN RN 1 Pamela Yusuf RN RN mb9 Yu Farris ae5 Corrections: (The following items were deleted from the chart) 15:27 Social history: Smoking status: Patient denies any tobacco usage or history of. [place] [id number] 15:27 Chief complaint: Patient states: Severe abdominal pain for 2 days 1 1 15: 15:29 Pulse 75bpm; Resp 20bpm; Pulse Ox 100%; Temp 97.9F; 78.93 kg; Height 5 ft. 2 in.; 1 BMI: 31.8; Pain 8/10, Adult; ll1
[2023-05-16 19:07] VITALS: BP 116/72; TEMP 97.9; O2SAT 100
== END ==
LOC: ER 15:21
DX: R10.32 Left lower quadrant pain (principal); R10.31 Right lower quadrant pain; R19.7 Diarrhea, unspecified; F17.210 Nicotine dependence, cigarettes, uncomplicated
CPT/HCPCS: 85025; 81001; 36415; 81025; 83690; 80053; 74177; Q9967; J2405; J7030

== ENCOUNTER 2024-11-17 09:58 | Emergency (ER) | payer BC ==
--- OUTSIDE RECORDS SUMMARY | 2024-11-17 10:01 | XMS REPORT | Continuity of Care Document ---
Author Name Unknown Address [address] [place] [id number] Organization [facility] [place] Address [address] [facility] [address] [place] [address] Care Team Providers Care Manager Star Name Role Phone [email or web address] Attending Clinician Larry paulino [email or web address] Admitting Clinician Larry paulino Payers Payer Name Policy Type Policy Number Effective Date Expirati on Date Source [place] [id number] 2023 00:00:00 Social History Smoking Status Start [...] 24 hr tablet, extended release [facility] mupirocin 2 % topical ointment APPLY A SMALL AMOUNT INTRANASAL AND INTRAUMBILI LEN TWICE A DAY FOR 3 WEEKS mupirocin 2 % topical ointment APPLY A SMALL AMOUNT INTRANASAL AND INTRAUMBILI LEN TWICE A DAY FOR 3 WEEKS No mupirocin 2 % topical ointment APPLY A SMALL AMOUNT INTRANASAL AND INTRAUMBIL ICAL TWICE A DAY FOR 3 WEEKS [facility] oxybutynin chloride 5 mg tablet oxybutynin chloride 5 mg tablet No oxybutynin chloride 5 mg tablet [facility] sertraline 100 mg tablet sertraline 100 mg tablet No sertraline 100 mg tablet [facility] sulfamethox azole 800 mg-trimetho prim 160 [...] hours by oral route for 21 days. [facility] temazepam 7.5 mg capsule temazepam 7.5 mg capsule No temazepam 7.5 mg capsule [facility] Vitamin D3 Vitamin D3 No Vitamin D3 [facility] baclofen 20 mg tablet baclofen 20 mg tablet No baclofen 20 mg tablet [facility] cephalexin 500 mg capsule cephalexin 500 mg capsule No cephalexin 500 mg capsule [facility] diphenhydra mine (bulk) diphenhydra mine (bulk) No diphenhydr amine (bulk) [facility] fenofibrate micronized 67 mg capsule [...] e pamoate 50 mg capsule [facility] Vital Signs Vital Name Observation Time Observation Value Comments S ource BP Diastolic 2023-05-12 00:00:00 62 mm[Hg] [facility] Height 2023-05-12 00:00:00 62 [in_i] [facility] BMI (Body Mass Index) 2023-05-12 00:00:00 32.4 kg/m2 [facility] Body Weight 2023-05-12 00:00:00 177 [lb_av] [facility] BP Systolic 2023-05-12 00:00:00 101 mm[Hg] [facility] Procedures Procedure Date / Time Performed Performing Clinicia n Source Gastroplasty 1997-02-20 00:00:00 [facility] Carpal Tunnel Surgery 1995-02-20 00:00:00 [facility] Encounters Start Date/Time End Date/Time Encounter Type Admission Type Attending Clinicians Care Facility Care Department Encounter ID Source 2023-05-12 00:00:00 2023-05-12 00:00:00 KANCHAN Ibarra: [address], [address], [place] [address] , Ph. GC_GCBZW_Genaro miller_Marva [facility] - GC_GCBZW_Luisa dumont Bronson* [id number] [facility]
[2024-11-17] MEDS ORDERED: ZIPRASIDONE MESYLA 20 MG/VIAL IM ONE (10:33)
[2024-11-17] MEDS ORDERED: WATER FOR INJ,STERILE 10 ML ONE (10:34)
[2024-11-17 10:41] LABS: Absolute Lymphocytes (CBC) 1.0 K/uL (0.7-4.9); Hematocrit 46.2 % (36.0-45.0); Hemoglobin 15.3 g/dL (12.0-15.0); MCH 32.5 pg (27.0-35.0); MCHC 33.1 g/dL (32.0-36.0); MCV 98.3 fL (80-100); MPV 9.5 fL (7.6-11.3); Nucleated RBC Absolute Count 0.0 (0-0); Nucleated Red Blood Cells % 0.0 % (0-0); RBC Red Blood Cell Count 4.70 M/uL (3.86-4.86); White Blood Count 12.60 thou/uL (4.3-10.9)
[2024-11-17 10:52] LABS: PT Prothrombin Time 12.5 SECONDS (10-13.0); PTT, Activated Partial Thromb 33.9 SECONDS (27.2-37.4); Protime INR 1.11
[2024-11-17 11:02] LABS: ALT/SGPT 15 U/L (13-56); AST/SGOT < 10 U/L (15-37); Albumin 3.8 g/dL (3.4-5.0); Albumin/Globulin Ratio 1.0 (1.1-1.8); Alkaline Phosphatase 102 U/L (45-117); Anion Gap 16.3 mEq/L (5.0-15.0); BUN Blood Urea Nitrogen 10 mg/dL (7-18); Bilirubin Indirect, Calculated 0.3 mg/dL (0.2-0.8); Globulin 3.7 g/dL (2.3-3.5); Glucose Level 133 mg/dL (74-106)
[2024-11-17 11:04] LABS: Potassium 2.3 mEq/L (3.5-5.1)
[2024-11-17 11:07] LABS: METHAMPHETAM NEGATIVE (NEGATIVE); THC Cannibis POSITIVE (NEGATIVE)
[2024-11-17 11:21] LABS: Anisocytosis 1+; Blood Morphology Comment NOTED (NOT SEEN); White Blood Cell Scan OK (OK)
[2024-11-17 11:22] LABS: Poikilocytosis 1+; Stomatocytes 1+
[2024-11-17] MEDS ORDERED: POTASSIUM 25 MEQ EFFERV TAB ONE (11:28)
--- NOTE | 2024-11-17 11:48 | ER ---
Nurse's Notes [facility] Name: Ju King Age: 49 yrs Sex: Female : 1975 Arrival Date: 11/17/2024 Time: 09:58 Bed 8 Private MD: Diagnosis: Acute psychosis Presentation: 11/17 10:06 Chief complaint: Patient states: I am hearing voices and having hallucinations. I was jb4 in [place] [facility] since Monday. I thought I had done things I didn't . I started having chest pain 2 hours ago. Coronavirus screen: At this time, the client does not indicate any symptoms associated with coronavirus-19. Ebola Screen: No symptoms or risks identified at this time. Initial Sepsis Screen: Does the patient meet any 2 criteria? HR > 90 bpm. Yes. Initial Sepsis Screen: Does the patient have a suspected source of infection? No. Patient's initial sepsis screen is negative. Risk Assessment: Do you want to hurt yourself or someone else? Patient reports no desire to harm self or others. Onset of symptoms was November 10, 2024. Transition of care: patient was not received from another setting of care. 10:06 Method Of Arrival: Ambulatory jb4 10:06 Acuity: DESHAWN 2 jb4 SLATE TRIMMER: 10:56 LMP N/A - Post-menopause, Not nh2 Historical: - Allergies: 10:09 No Known Allergies; jb4 - PMHx: 10:09 Anxiety; depressive disorder; jb4 - PSHx: 10:09 carpal tunnel; Gastric Bypass; jb4 - Immunization history:: Adult Immunizations up to date. - Infectious Disease History:: Denies. - Social history:: Smoking status: Patient reports the use of cigarette tobacco products, smokes one pack cigarettes per day. Patient uses street drugs, marijuana. Screenin:20 [facility] ED Fall Risk Assessment (Adult) History of falling in the last 3 months, nh2 including since admission Yes- single mechanical fall (1 pt) Confusion or Disorientation Yes (5 pts) Intoxicated or Sedated No (0 pts) Impaired Gait No (0 pts) Mobility Assist Device Used No (0 pt) Altered Elimination No (0 pt) Score/Fall Risk Level 3 or more points = High Risk Oriented to surroundings, Maintained a safe environment, Educated pt \\T\\ family on fall prevention, incl call for assistance when getting out of bed, Assessed \\T\\ reinforced patient's understanding of fall precautions, Hourly rounding (assess needs \\T\\ fall precautionary measures) done. Abuse screen: Denies threats or abuse. Denies injuries from another. Nutritional screening: No deficits noted. Tuberculosis screening: No symptoms or risk factors identified. Assessment: 10:20 General: Appears distressed, uncomfortable, Behavior is anxious, crying, restless, nh2 Reports hearing voices and having hallucinations. Pain: Complains of pain in lumbar area, left low back and right low back Pain does not radiate. Pain currently is 6 out of 10 on a pain scale. Quality of pain is described as aching, Pain began 1 month ago Is intermittent, Noted to be crying, moaning, restless. Neuro: Level of Consciousness is awake, alert, obeys commands, Oriented to person, place, time, situation. Cardiovascular: Reports chest pain, Patient's skin is warm and dry. Rhythm is sinus rhythm. Respiratory: Reports shortness of breath on exertion Airway is patent Trachea midline Respiratory effort is even, unlabored, Respiratory pattern is symmetrical, tachypnea. GI: Abdomen is round non-distended, Reports diarrhea, Patient currently denies nausea, vomiting. : No signs and/or symptoms were reported regarding the genitourinary system. EENT: No signs and/or symptoms were reported regarding the EENT system. Derm: Skin is pink, warm \\T\\ dry. Musculoskeletal: Range of motion: intact in all extremities. 11:00 Reassessment: Patient and/or family updated on plan of care and expected duration. Pain nh2 level reassessed. Patient is alert, oriented x 3, equal unlabored respirations, skin warm/dry/pink. Patient states feeling better. 11:46 Reassessment: Patient and/or family updated on plan of care and expected duration. Pain nh2 level reassessed. Patient is alert, oriented x 3, equal unlabored respirations, skin warm/dry/pink. Patient states feeling better. Psych: 10:40 [place] Suicide Severity Screening: In the past month, have you wished you were nh2 or wished you could go to sleep and not wake up? Patient responds "No." "In the past month, have you actually had any thoughts of killing yourself?" Patient responds "no." "In your lifetime, have you ever done anything, started to do anything, or prepared to do anything to end your life?" Patient responds "yes." Patient reports suicidal intent occurred greater than 3 months prior. 10:40 Subjective: Patient's mood is sad, irritable, Delusions are denied, Hallucinations are nh2 auditory, visual. Objective: Patient is cooperative, Speech is rambling, Affect is flat. Interventions: Patient placed in hospital gown. Urine collected and sent for urine drug test. Safety Checks: Visitors are present. synthetic marijuana. Vital Signs: 10:06 BP 157 / 98; Pulse 124; Resp 20; Temp 97(TE); Pulse Ox 97% on R/A; Weight 66.22 kg (R); jb4 Height 5 ft. 2 in. (R); 11:06 BP 133 / 76; Pulse 102; Resp 20; Pulse Ox 95% on R/A; nh2 11:41 BP 128 / 71; Pulse 90; Resp 18; Pulse Ox 97% on R/A; nh2 10:06 Body Mass Index 26.70 (66.22 kg, 157.48 cm) jb4 ED Course: 10:01 Patient arrived in ED. al6 10:05 Jairon Cervantes MD is Attending Physician. sp3 10:09 Triage completed. jb4 10:09 Arm band placed on right wrist. jb4 10:11 Natanael Jensen, BASSEM is Primary Nurse. bp 10:20 Patient has correct armband on for positive identification. Placed in gown. Bed in low nh2 position. Call light in reach. Side rails up X2. Provided Education on: using call light for assistance. 10:20 Initial lab(s) drawn, by me, sent to lab. Inserted saline lock: 20 gauge in right nh2 antecubital area, using aseptic technique. Blood collected. Flushed with 10 mL NS. 11:04 Notified ED physician of a critical lab result(s). Potassium 2.3. ll1 12:00 No provider procedures requiring assistance completed. IV discontinued, intact, nh2 bleeding controlled, No redness/swelling at site. Pressure dressing applied. Administered Medications: 10:35 Drug: Geodon IM 20 mg IM once Route: IM; Site: right gluteus; nh2 11:00 Follow up: Response: No adverse reaction; Pain is decreased; Anxiety decreased nh2 11:37 Drug: Potassium PO Effervescent Tablet 50 mEq PO once; dissolve in 4 ounces of water or nh2 juice Route: PO; 12:01 Follow up: Response: No adverse reaction nh2 Medication: 10:20 VIS not applicable for this client. nh2 Outcome: 11:47 Discharge ordered by . sp3 12:00 Discharged to home ambulatory, with family, nh2 12:00 Condition: stable 12:00 Discharge instructions given to patient, family, Instructed on discharge instructions, follow up and referral plans. benefits of quitting smoking, Demonstrated understanding of instructions, follow-up care, 12:01 Patient left the ED. nh2 Signatures: Hunter Garcia RN RN jb4 Natanael Jensen RN RN bp Donna Warren RN RN ll1 Jairon Cervantes MD MD sp3 Bobby De La Cruz Jr, RN RN nh2 Lorena Wade6 Corrections: (The following items were deleted from the chart) 10:10 10:06 Chief complaint: Patient states: I am hearing voices and having hallucinations. I jb4 was in [place] since Monday. I thought I had done things I didn't . jb4 11:10 10:40 synthetic marijuana nh2 nh2 11:17 10:20 GI: Abdomen is round non-distended, Patient currently denies nausea, vomiting, nh2nh2
--- NOTE | 2024-11-17 11:48 | EDPHYS ---
Physician Documentation [facility] Name: Ju King Age: 49 yrs Sex: Female : 1975 Arrival Date: 11/17/2024 Time: 09:58 Bed 8 Private MD: ED Physician Jairon Cervantes HPI: 11/17 10:19 This 49 yrs old Female presents to ER via Ambulatory with complaints of AMS. sp3 10:19 49-year-old female with history of anxiety, depression and recent psychosis currently sp3 on ziprasidone presents to the ED for a 4-day history of psychosis including hearing voices and seeing "lead pencils coming down from the [place]". Patient states that she has been extremely anxious the entire time. She denies any suicidal ideation or homicidal ideation. No recent medication changes by her psychiatrist. She denies any headache, neck pain, chest pain, shortness of breath, abdominal pain, vomiting, diarrhea or or any other somatic symptoms. She denies . ROS, history and physical limited secondary to psychosis. Limited ROS documented.. 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 - Infectious Disease History:: Denies. - Social history:: Smoking status: Patient reports the use of cigarette tobacco products, smokes one pack cigarettes per day. Patient uses street drugs, marijuana. ROS: 10:20 Constitutional: Negative for fever, chills, and weight loss, Eyes: Negative for injury, sp3 pain, redness, and discharge, Neck: Negative for injury, pain, and swelling, Abdomen/GI: Negative for abdominal pain, nausea, vomiting, diarrhea, and constipation, Back: Negative for injury and pain, MS/Extremity: Negative for injury and deformity, Skin: Negative for injury, rash, and discoloration, Endocrine: Negative for neck swelling, polydipsia, polyuria, polyphagia, and marked weight changes, Hematologic/Lymphatic: Negative for swollen nodes, abnormal bleeding, and unusual bruising, 10:20 All other systems are negative, Exam: 10:21 Head/Face: Normocephalic, atraumatic. Eyes: Pupils equal round and reactive to light, sp3 extra-ocular motions intact. Lids and lashes normal. Conjunctiva and sclera are non-icteric and not injected. Cornea within normal limits. Periorbital areas with no swelling, redness, or edema. Neck: Trachea midline, no thyromegaly or masses palpated, and no cervical lymphadenopathy. Supple, full range of motion without nuchal rigidity, or vertebral point tenderness. No Meningismus. Chest/axilla: Normal chest wall appearance and motion. Nontender with no deformity. No lesions are appreciated. Respiratory: Lungs have equal breath sounds bilaterally, clear to auscultation and percussion. No rales, rhonchi or wheezes noted. No increased work of breathing, no retractions or nasal flaring. Abdomen/GI: Soft, non-tender, with normal bowel sounds. No distension or tympany. No guarding or rebound. No evidence of tenderness throughout. Back: No spinal tenderness. No costovertebral tenderness. Full range of motion. Skin: Warm, dry with normal turgor. Normal color with no rashes, no lesions, and no evidence of cellulitis. MS/ Extremity: Pulses equal, no cyanosis. Neurovascular intact. Full, normal range of motion. Neuro: Awake and alert, GCS 15, oriented to person, place, time, and situation. Cranial nerves II-XII grossly intact. Motor strength 5/5 in all extremities. Sensory grossly intact. Cerebellar exam normal. Normal gait. 10:21 Cardiovascular: Rate: tachycardic, 10:21 Psych: Patient extremely anxious with fists clenched looking up at the ceiling describing her psychosis. She denies suicidal ideation or homicidal ideation. No focal neurological deficit noted on limited exam.. 10:30 ECG was reviewed by the Attending Physician. EKG demonstrates normal sinus rhythm 98 sp3 bpm with normal intervals, normal QRS, normal axis, normal axis ST segments without evidence of acute ischemia. Vital Signs: 10:06 BP 157 / 98; Pulse 124; Resp 20; Temp 97(TE); Pulse Ox 97% on R/A; Weight 66.22 kg (R); jb4 Height 5 ft. 2 in. (R); 11:06 BP 133 / 76; Pulse 102; Resp 20; Pulse Ox 95% on R/A; nh2 11:41 BP 128 / 71; Pulse 90; Resp 18; Pulse Ox 97% on R/A; nh2 10:06 Body Mass Index 26.70 (66.22 kg, 157.48 cm) jb4 MDM: 10:05 Medical Screening Exam initiated sp3 10:21 Data reviewed: vital signs, nurses notes, lab test result(s), EKG, radiologic studies. sp3 ED course: 49-year-old female with PMH above now with anxiety and psychosis. Differential diagnosis includes manic episode with psychosis versus schizophrenia based acute psychosis. Standard toxicology workup pending and patient will receive Geodon 20 mg IM with further medication as indicated. Disposition pending workup and patient course.. 11:46 ED course: Patient now with heart rate in the 90s and full resolution of symptoms. She sp3 states she now wants to go home. We offered transfer and acceptance for acute psychosis at psychiatric facility however patient declines. She is no longer psychotic and has not and is not suicidal or homicidal. She will follow-up with her outpatient physician at this time.. 11/17 10:19 Order name: Acetaminophen; Complete Time: sp3 11/17 10:19 Order name: Basic Metabolic Panel; Complete Time: sp3 11/17 10:19 Order name: CBC with Diff; Complete Time: sp3 11/17 10:19 Order name: ETOH Level; Complete Time: sp3 11/17 10:19 Order name: Hepatic Function; Complete Time: sp3 11/17 10:19 Order name: PT-INR; Complete Time: sp3 11/17 10:19 Order name: Test, Urine; Complete Time: : sp3 11/17 10:19 Order name: Ptt, Activated; Complete Time: sp3 11/17 10:19 Order name: Salicylate; Complete Time: sp3 11/17 10:19 Order name: Urine Drug Screen; Complete Time: sp3 11/17 10:46 Order name: CBC Smear Scan; Complete Time: 11: EDMS 11/17 10:19 Order name: EKG - Nurse/Tech; Complete Time: 10: sp3 11/17 10:19 Order name: IV Saline Lock; Complete Time: 10:30 sp3 11/17 10:19 Order name: Labs collected and sent; Complete Time: 10:30 sp3 11/17 10:19 Order name: Suicide Screening ([place]); Complete Time: 11:06 sp3 11/17 10:19 Order name: Cath: If no urine sample in 30 mins; Complete Time: 10:51 sp3 11/17 10:19 Order name: Monitor; Complete Time: 10:30 sp3 Administered Medications: 10:35 Drug: Geodon IM 20 mg IM once Route: IM; Site: right gluteus; nh2 11:00 Follow up: Response: No adverse reaction; Pain is decreased; Anxiety decreased nh2 11:37 Drug: Potassium PO Effervescent Tablet 50 mEq PO once; dissolve in 4 ounces of water or nh2 juice Route: PO; 12:01 Follow up: Response: No adverse reaction nh2 Disposition Summary: 11/17/24 11:47 Discharge Ordered Notes: Location: Home sp3 Condition: Stable sp3 Diagnosis - Acute psychosis sp3 Followup: sp3 - With: Private Physician - When: Upon discharge from the Emergency Department - Reason: Recheck today's complaints Discharge Instructions: - Discharge Summary Sheet sp3 - Psychosis sp3 Forms: - Medication Reconciliation Form sp3 - Antibiotic Education sp3 - Prescription Opioid Use sp3 - Patient Portal Instructions sp3 - Leadership Thank You Letter sp3 Signatures: Dispatcher [employer] Hunter Barragan, RN RN jb4 Jairon Cervantes MD MD sp3 Bobby De La Cruz Jr, RN RN nh2 Corrections: (The following items were deleted from the chart) 10:20 10:19 ACETAMINOPHEN+C.LAB.BRZ ordered. EDMS EDMS 10:20 10:19 BASIC METABOLIC PANEL+C.LAB.BRZ ordered. EDMS EDMS 10:20 10:19 CBC+H.LAB.BRZ ordered. EDMS EDMS 10:20 10:19 ETHANOL+C.LAB.BRZ ordered. EDMS EDMS 10:20 10:19 HEPATIC FUNCTION+C.LAB.BRZ ordered. EDMS EDMS 10:20 10:19 PROTIME (+INR)+COAG.LAB.BRZ ordered. EDMS EDMS 10:20 10:19 Test, Urine+UC.LAB.BRZ ordered. EDMS EDMS 10:20 10:19 PTT, ACTIVATED+COAG.LAB.BRZ ordered. EDMS EDMS 10:20 10:19 SALICYLATE+C.LAB.BRZ ordered. EDMS EDMS 10:20 10:19 URINE DRUG SCREEN+UC.LAB.BRZ ordered. EDMS EDMS
[2024-11-17 12:06] VITALS: TEMP 97
[2024-11-17 12:09] VITALS: BP 128/71; O2SAT 97
== END 2024-11-17 12:01 | disposition home or self-care (01) ==
LOC: ER 09:58
DX: F23 Brief psychotic disorder (principal); F17.210 Nicotine dependence, cigarettes, uncomplicated
CPT/HCPCS: 93005; 85025; 80048; 36415; 81025; 85610; 80076; 85730; 80307; 96372; 99285; 80143; 80179; 82077; J3486

== ENCOUNTER 2024-12-08 20:32 | Emergency (ER) | payer BC, OTHER ==
--- OUTSIDE RECORDS SUMMARY | 2024-12-08 20:49 | XMS REPORT | Continuity of Care Document ---
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 Name Role Phone [email or web address]_Kadiyala_S Attending Clinician Larry paulino [email or web address]_Kadiyala_S Admitting Clinician Lrary paulino Payers Payer Name Policy Type Policy Number Effective Date Expirati on Date Source [place] [id number] 2023 00:00:00 Social History Smoking Status Start [...] ICAL TWICE A DAY FOR 3 WEEKS [facility] oxybutynin chloride 5 mg tablet oxybutynin chloride 5 mg tablet No oxybutynin chloride 5 mg tablet [facility] sertraline 100 mg tablet sertraline 100 mg tablet No sertraline 100 mg tablet [facility] sulfamethox azole 800 mg-trimetho prim 160 [...] hours by oral route for 21 days. [facility] temazepam 7.5 mg capsule temazepam 7.5 mg capsule No temazepam 7.5 mg capsule [facility] Vitamin D3 Vitamin D3 No Vitamin D3 [facility] baclofen 20 mg tablet baclofen 20 mg tablet No baclofen 20 mg tablet [facility] cephalexin 500 mg capsule cephalexin 500 mg capsule No cephalexin 500 mg capsule [facility] diphenhydra mine (bulk) diphenhydra mine (bulk) No diphenhydr amine (bulk) [facility] Vital Signs Vital Name Observation Time Observation Value Comments S ource BP Diastolic 2023-05-12 00:00:00 62 mm[Hg] [facility] Height 2023-05-12 00:00:00 62 [facility]_i] [facility] BMI (Body Mass Index) 2023-05-12 00:00:00 32.4 kg/m2 [facility] Body Weight 2023-05-12 00:00:00 177 [lb_av] [facility] BP Systolic 2023-05-12 00:00:00 101 mm[Hg] [facility] Procedures Procedure Date / Time Performed Performing Clinicia n Source Gastroplasty 1997-02-20 00:00:00 [facility] Carpal Tunnel Surgery 1995-02-20 00:00:00 [facility] Encounters Start Date/Time End Date/Time Encounter Type Admission Type Attending Clinicians Care Facility Care Department Encounter ID Source 2023-05-12 00:00:00 2023-05-12 00:00:00 KANCHAN Ibarra: [address], [address], [place] [address] , Ph. GC_GCBZW_Genaro miller_Marva [facility] - GC_GCBZW_Liusa dumont [place]* [id number] [facility]
[2024-12-08 21:30] LABS: PT Prothrombin Time 11.8 SECONDS (10-13.0); Protime INR 1.05
[2024-12-08 21:42] LABS: Hematocrit 33.2 % (36.0-45.0); MPV 7.9 fL (7.6-11.3); Nucleated RBC Absolute Count 0.0 (0-0); Nucleated Red Blood Cells % 0.1 % (0-0); White Blood Count 10.40 thou/uL (4.3-10.9)
[2024-12-08 21:46] LABS: ALT/SGPT < 14 U/L (13-56); AST/SGOT < 10 U/L (15-37); Albumin 2.4 g/dL (3.4-5.0); Albumin/Globulin Ratio 0.8 (1.1-1.8); Alkaline Phosphatase 95 U/L (45-117); Anion Gap 7.2 mEq/L (5.0-15.0); BUN Blood Urea Nitrogen 10 mg/dL (7-18); Bilirubin Indirect, Calculated 0.1 mg/dL (0.2-0.8); Globulin 2.9 g/dL (2.3-3.5); Glucose Level 88 mg/dL (74-106); Magnesium 1.6 mg/dL (1.6-2.4); NT PRO-BNP 268 pg/mL (<125); Potassium 3.2 mEq/L (3.5-5.1); Thyroid Stimulating Hormone 0.479 uIU/mL (0.358-3.740); Troponin High Sensitivity 3.5 pg/mL (<58.9)
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
[2024-12-08 21:50] LABS: Absolute Lymphocytes (CBC) 1.0 K/uL (0.7-4.9); Hemoglobin 11.1 g/dL (12.0-15.0); MCH 32.7 pg (27.0-35.0); MCHC 33.6 g/dL (32.0-36.0); MCV 97.5 fL (80-100); RBC Red Blood Cell Count 3.40 M/uL (3.86-4.86)
[2024-12-08 23:10] LABS: White Blood Cell Scan OK (OK)
[2024-12-08 23:12] LABS: Blood Morphology Comment NOT SEEN (NOT SEEN)
[2024-12-09 04:25] VITALS: BP 101/72; TEMP 97.8; O2SAT 96
== END 2024-12-08 22:13 | disposition home or self-care (01) ==
LOC: ER 20:32
DX: I95.89 Other hypotension (principal); R53.1 Weakness; R22.43 Localized swelling, mass and lump, lower limb, bilateral; V47.5XXA Car driver injured in collision with fixed or stationary object in traffic accident, initial encounter; Z72.0 Tobacco use
CPT/HCPCS: 36415; 80048; 80076; 82550; 83735; 83880; 84439; 84443; 84484; 85025; 85610; 86850; 86900; 86901; 93005; 99283